=== PATIENT | female | born 1975 | race Caucasian/White ===

== ENCOUNTER 2016-10-19 17:42 | Emergency (ER) | payer MEDICAID ==
--- NOTE | 2016-10-19 18:05 | ERPHSYRPT ---
- History of Present Illness Time Seen by Provider: 10/19/16 17:56 Source: patient Exam Limitations: no limitations Patient Subjective Stated Complaint: PT REPORTS ALL OVER HEADACHE BEGINNING LAST NIGHT-STATES THAT NORMALLY HER HEADACHES ARE IN THE FRONT-DENIES NUMBNESS OR TINLGING-STATES THAT SHE HAS BEEN OFF BALANCE MORE THAN NORMAL-S/S BEGAN LAST NIGHT-DENIES N/D-DENIES RECENT FALL Triage Nursing Assessment: PT PINK WARM ET DRY-A & O X 3-ANSWERING QUESTIONS CORRECTLY-PUPILS NOT EQUAL BUT BOTH REACTIVE-RIGHT PUPIL 4-LEFT 3-MILD RIGHT SIDED WEAKNESS NOTED-NO FACIAL DROOP NOTED- DENIES CONFUSION OR SLURRED SPEECH-TREMORS NOTED BILATERALLY WHEN HOLDING ARMS STRAIGHT-PT STATES THAT USUALLY HER MEDICINE TAKES CARE OF TREMORS ET SHE DOES NOT HAVE THEM AT ALL Physician History: The patient is a 41-year-old female complaining of a headache since last night. She has a history of migraine headaches but only on one side. This headache is a little bit different. She's had a brain bleed several years ago that was result of falling and hitting concrete. She denies any numbness or tingling at this time. She says her right hand is a little bit weaker than it usually is. Her past medical history is significant for migraine headache, closed head injury with brain bleed, and fibromyalgia. Timing/Duration: yesterday Quality: aching Head Pain Location: global Severity of Pain-Max: moderate Severity of Pain-Current: moderate Recent Head Trauma: frequent headaches Associated Symptoms: denies symptoms Previous symptoms: different symptoms Allergies/Adverse Reactions: amoxicillin Allergy (Intermediate, Verified 10/19/16 17:48) Hives penicillin G Allergy (Intermediate, Verified 10/19/16 17:48) Hives Home Medications: Dicyclomine HCl 50 mg PO DAILY 10/19/16 [History] Gabapentin [Neurontin] 100 mg PO HS 10/19/16 [History] Propranolol HCl 40 mg PO BID 10/19/16 [History] Ranitidine HCl 150 mg PO BID 10/19/16 [History] Hx Tetanus, Diphtheria Vaccination/Date Given: No Hx Influenza Vaccination/Date Given: No Hx Pneumococcal Vaccination/Date Given: No Immunizations Up to Date: Yes - Review of Systems Constitutional: No Fever, No Chills Eyes: No Symptoms Ears, Nose, & Throat: No Symptoms Respiratory: No Cough, No Dyspnea Cardiac: No Chest Pain, No Edema, No Syncope Abdominal/Gastrointestinal: No Abdominal Pain, No Nausea, No Vomiting, No Diarrhea Genitourinary Symptoms: No Dysuria Musculoskeletal: No Back Pain, No Neck Pain Skin: No Rash Neurological: No Dizziness, No Focal Weakness, No Sensory Changes Psychological: No Symptoms Endocrine: No Symptoms Hematologic/Lymphatic: No Symptoms Immunological/Allergic: No Symptoms All Other Systems: Reviewed and Negative - Past Medical History Pertinent Past Medical History: Yes Neurological History: Other Other Medical History: BRAIN INJURY - Past Surgical History Past Surgical History: Yes Female Surgical History: Tubal Ligation - Social History Smoking Status: Current every day smoker How long have you smoked: YRS Drug Use: none Patient Lives Alone: No - Female History Hx Last Menstrual Period: OCT 15 2017 - Nursing Vital Signs Nursing Vital Signs: Initial Vital Signs Temperature 98.2 F Temperature Source Oral Pulse Rate 84 Respiratory Rate 18 Blood Pressure [] 127/97 Pain Intensity 10 - Physical Exam General Appearance: no apparent distress Eye Exam: other (right pupil is larger than left. Both pupils reactive to light. EOMI. Pt is decreased vision in 4 quadrants. 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 Exam: normal speech, PERRL, No facial droop Coordination/Gait Exam: normal cerebellar function Motor/Sensory Exam: no motor deficit, no sensory deficit Skin Exam: normal color, warm, dry, No rash SpO2 Interpretation: normal SpO2: 99 Oxygen Delivery: Room Air - CT Exams Head CT Interpretation: Tele-radiologist Report, No/Intracranial Hemorrhag, Other ( No acute) Ordered Tests: Active Orders 24 hr Category Date Time Status Record Label Internship STAT Care 10/19/16 17:53 Active IV Insertion STAT Care 10/19/16 18:05 Active HEAD WITHOUT CONTRAST [CT] Stat Exams 10/19/16 17:56 Taken BMP Stat Lab 10/19/16 18:25 Received CBC W DIFF Stat Lab 10/19/16 18:25 Completed PROTIME WITH INR Stat Lab 10/19/16 18:25 Completed Lab/Rad Data: Laboratory Result Diagrams 10/19/16 18:25 Laboratory Results 10/19/16 10/19/16 Range/Units 18:25 18:25 WBC 12.5 H (4.0-10.5) K/mm3 RBC 4.42 (4.1-5.4) M/mm3 Hgb 13.0 (12.0-16.0) gm/dl Hct 40.0 (35-47) % MCV 90.5 (78-100) fl MCH 29.4 (26-32) pg MCHC 32.5 (32-36) g/dl RDW 14.9 H (11.5-14.0) % Plt Count 307 (150-450) K/mm3 MPV 10.3 H (6-9.5) fl Gran % 71.0 H (36.0-66.0) % Lymphocytes % 17.4 L (24.0-44.0) % Monocytes % 8.9 (0.0-12.0) % Eosinophils % 2.5 (0.00-5.0) % Basophils % 0.2 (0.0-0.4) % Basophils # 0.03 (0-0.4) INR 1.01 (0.8-3.0) - Progress Progress: improved Air Movement: good Blood Culture(s) Obtained: No Antibiotics given: No Counseled pt/family regarding: rad results - Departure Time of Disposition: 18:58 Departure Disposition: Home Clinical Impression: Headache Condition: Stable Critical Care Time: No Instructions: Headache
[2016-10-19 18:30] LABS: BASOPHIL % 0.2 % (0.0-0.4); Eosinophil % 2.5 % (0.00-5.0); Lymphocytes % 17.4 % (24.0-44.0); Mean Cell Volume 90.5 fl (78-100); Mean Corpuscular Hemoglobin 29.4 pg (26-32); Mean Platelet Volume 10.3 fl (6-9.5); Monocytes % 8.9 % (0.0-12.0); Platelet Count 307 K/mm3 (150-450); Red Blood Count 4.42 M/mm3 (4.1-5.4); Red Cell Distribution Width 14.9 % (11.5-14.0); White Blood Count 12.5 K/mm3 (4.0-10.5)
[2016-10-19 18:41] LABS: INR 1.01 (0.8-3.0); PROTIME 11.3 SECONDS (9.95-12.35)
[2016-10-19 18:48] LABS: ANION GAP 16.4 MEQ/L (5-15); BLOOD UREA NITROGEN 13 mg/dL (9-20); CHLORIDE 107 mEq/L (98-107); Carbon Dioxide 21.8 mEq/L (21-32); Glucose 89 MG/DL (70-110); Potassium 3.7 mEq/L (3.5-5.1); SODIUM 142 mEq/L (136-145)
[2016-10-19] MEDS ORDERED: TORAdol 30 mg Injection IM ONE (18:55)
[2016-10-19] MEDS ORDERED: Phenergan 25 MG INJ IM ONE (18:55)
[2016-10-19] MEDS ORDERED: Phenergan 25 MG INJ ONE (19:04)
[2016-10-19] MEDS ORDERED: TORAdol 30 mg Injection ONE (19:04)
[2016-10-19 19:26] VITALS: BP 140/78; PULSE 76; O2SAT 98
--- NOTE | 2016-10-19 22:23 | XRAY ---
Indication: Headache, right-sided weakness and unequal pupils. Multiple contiguous axial images obtained through the head without contrast. Comparison: None Small foci of encephalomalacia seen of the inferior frontal lobes, right greater than left. No acute intracranial hemorrhage, abnormal extra-axial fluid collection, or mass effect. Fourth ventricle is midline without hydrocephalus. Gordon-white matter differentiation preserved. Bony calvarium intact with note of previous bilateral mastoidectomy. Visualized paranasal sinuses are clear. 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 No acute intracranial abnormalities. CTDI 68.98
== END 2016-10-19 19:35 | disposition home or self-care (01) ==
LOC: ED 17:42
DX: R51 Headache (principal); Z87.898 Personal history of other specified conditions
CPT/HCPCS: 36000; 36415; 70450; 80048; 82962; 85025; 85610; 93041; 96372; 99284; J1885; J2550